=== PATIENT | female | born 1985 | race Asian ===

== ENCOUNTER 2024-03-17 02:21 | Emergency (ER) | payer BC ==
[~2024-03-17] VITALS: Ht 160 cm; Wt 50.8 kg
[2024-03-17 02:30] VITALS: BP_SYST 139; PULSE 110; RESP 20; TEMP 98.8; O2SAT 98
[2024-03-17 02:49] LABS: BILIRUBIN,URINE NEGATIVE (NEGATIVE); BLOOD, URINE 3+ (NEGATIVE); CLARITY/URINE CLEAR (CLEAR); COLOR,URINE YELLOW (YELLOW); GLUCOSE,URINE NEGATIVE (NEGATIVE); KETONES,URINE NEGATIVE (NEGATIVE); LEUKOCYTE ESTERASE ,URINE 2+ (NEGATIVE); NITRITE, URINE NEGATIVE (NEGATIVE); PROTEIN URINE 2+ (NEGATIVE); UROBILINOGEN,URINE 0.2 (0.2-1.0)
[2024-03-17 03:30] LABS: BACTERIA,URINE FEW /HPF (None Seen); RBC,URINE >100 /HPF (0-3); WBC,URINE >100 /HPF (0-3)
[2024-03-17] MEDS ORDERED: PHEN-890 PO (03:34)
[2024-03-17] MEDS ORDERED: NITR-85 PO (03:34)
[2024-03-17 03:36] VITALS: BP_SYST 139; PULSE 104; RESP 20; TEMP 97.7; O2SAT 99
== END 2024-03-17 03:35 | disposition home or self-care (01) ==
LOC: SED 02:21
DX: N39.0 Urinary tract infection, site not specified (principal)
CPT/HCPCS: 81000; 81001; 81015; 81025; 87086; 87186; 99283